=== PATIENT | female | born 1955 | race Caucasian/White ===

== ENCOUNTER → 2017-03-30 | Emergency (ER) | payer OTHER ==
[~2017-03-30] VITALS: Ht 162.6 cm; Wt 91.6 kg
[~2017-03-30] MED LIST: ACET500C5 PO; ALBU18HF INHALATION; GUAI473L22 PO; INSU100V19 SQ; LISI10TA2; MELO-216 PO; MTF1000T; SIMV20TA PO; SODI126M NASAL
[2017-03-30 19:57] VITALS: Ht 162.6 cm; Wt 91.6 kg
--- NOTE | 2017-03-30 21:59 | RADRPT ---
PROCEDURE: Portable chest x-ray. CLINICAL INDICATION: 61-year of age, female. Chest pain fever and cough TECHNIQUE: Portable AP view of the chest. COMPARISON: None available. FINDINGS: Moderate diffuse enlargement of the cardiopericardial silhouette. Mediastinal contours are otherwise normal. Pulmonary vessels are prominent. Lungs are otherwise clear. Negative for pleural effusion or pneumothorax. No acute bony abnormality. Additional comment: None. IMPRESSION: Cardiomegaly and prominent pulmonary vessels may indicate pulmonary venous congestion without inters titial pulmonary edema. Negative for focal lung consolidation. RPTAT: HCTS Physician Judi Date Time Electronically viewed and signed by Physician Judi on 03/30/2017 21:59 CS/
[2017-03-30 22:02] LABS: BASOPHIL # 0.1 10^3/ul (0.0-0.1); BASOPHILS % 0.4 % (0.0-2.0); EOSINOPHILS # 0.1 10^3/ul (0.0-0.5); EOSINOPHILS % 0.4 % (0.0-7.0); HEMATOCRIT 40.2 % (37.0-47.0); HEMOGLOBIN 13.4 g/dl (12.0-16.0); LYMPHOCYTES # 4.3 10^3/ul (0.8-2.9); LYMPHOCYTES % 30.2 % (15.0-51.0); MEAN CORPUSCULAR HEMOGLOBIN 31.4 pg (29.0-33.0); MEAN CORPUSCULAR HGB CONC 33.3 g/dl (32.0-37.0); MEAN CORPUSCULAR VOLUME 94.1 fl (82.0-101.0); MONOCYTE # 0.8 10^3/ul (0.3-0.9); MONOCYTES % 5.7 % (0.0-11.0); PLATELET COUNT 263 10^3/UL (140-415); RED BLOOD COUNT 4.27 10^6/ul (4.20-5.40); RED CELL DISTRIBUTION WIDTH 12.3 % (11.5-14.5); WHITE BLOOD COUNT 14.3 10^3/ul (4.8-10.8)
[2017-03-30 22:34] LABS: ANION GAP 18 (8-16); BLOOD UREA NITROGEN 23 mg/dl (7-20); CALCIUM 9.5 mg/dl (8.4-10.2); CARBON DIOXIDE 28 mmol/L (21-31); CHLORIDE 104 mmol/L (97-110); CREATININE 0.72 mg/dl (0.44-1.00); GLUCOSE 135 mg/dl (70-220); POTASSIUM 4.2 mmol/L (3.5-5.1); SODIUM 146 mmol/L (135-144)
[2017-03-30 22:46] LABS: TROPONIN-I < 0.012 ng/ml (0.00-0.12)
--- NOTE | 2017-03-30 23:32 | ERD ---
ER Documentation Chief Complaint Chief Complaint cough x 1 week, also c/o chest/back pain when coughing HPI 61-year-old female is complaining of a week. Patient stated that she has pain in her right anterior chest, and right upper back for last 4 days. The pain is worse with respiration and cough. She has a fever at home was temperature 100.4 . Cough is nonproductive, worse when lying down at night. Patient reports shortness of breath. Patient has history of diabetes. Denies abdominal pain, vomiting, or diarrhea. Denies palpitations. Denies radiation of the pain. ROS All systems reviewed and are negative except as per history of present illness. Medications Home Meds Active Scripts Guaifenesin-Codeine Phosphate* (Guaifenesin* AC Cough Syrup) 473 Ml Liquid, 10 ML PO Q4H Y for COUGH, #120 ML Prov:KEYUR VILLASENOR NP 03/30/17 Sodium Chloride (Saline Nasal Mist) 126 Ml Mist, 2 SPRAY NASAL Q2H Y for NASAL CONGESTION, #1 BOTTLE Prov:KEYUR VILLASENOR NP 03/30/17 Albuterol Sulfate* (Ventolin HFA*) 18 Gm Hfa.aer.ad, 2 PUFF INHALATION Q4H, #1 INHALER Prov:KEYUR VILLASENOR NP 03/30/17 Acetaminophen* (Tylophen*) 500 Mg Capsule, 1 CAP PO Q6H Y for PAIN AND OR ELEVATED TEMP, #20 CAP Prov:KEYUR VILLASENOR NP 03/30/17 Reported Medications Simvastatin* (Zocor*) 20 Mg Tablet, 20 MG PO DAILY 09/07/11 Meloxicam (Mobic) 7.5 Mg Tablet, 7.5 MG PO Q6 Y 09/07/11 Insulin Glargine,Hum.rec.anlog (Lantus) 100 U/Ml Vial, 50 U SQ BID 09/07/11 Lisinopril* (Lisinopril*) 10 Mg Tablet 02/26/10 Metformin* (Glucophage*) 1,000 Mg Tablet 02/26/10 Allergies Allergies: Coded Allergies: No Known Drug Allergies (Verified Allergy, Mild, 03/30/17) PMhx/Soc History of Surgery: Yes (C SECTION) Anesthesia Reaction: No Hx Neurological Disorder: No Hx Respiratory Disorders: No Hx Cardiac Disorders: No Hx Psychiatric Problems: No Hx Miscellaneous Medical Probl: Yes (HTN) Hx Alcohol Use: No Hx Substance Use: No Hx Tobacco Use: No Smoking Status: Never smoker Physical Exam Vitals Vital Signs Date Time Temp Pulse Resp B/P Pulse Ox O2 Delivery O2 Flow Rate FiO2 03/30/17 19:57 99.2 91 20 115/56 96 Physical Exam General: Well-developed, well-nourished, conscious and coherent, in no distress Skin: Warm and dry without rash, good texture and turgor Head: Normocephalic without evidence of trauma Eyes: Sclera and conjunctivae normal; pupils equal, round, and reactive to light; extraocular movements are intact Ears: Canals are patent. Tympanic membranes are clear Nose/Face: To mucosa erythematous and swollen. Mouth/throat: Mucous membranes are moist. Posterior pharynx clear without erythema or exudates Neck: Supple without meningismus or adenopathy. Carotids are equal. Trachea midline. No bruits or JVD Chest: Normal AP diameter. Good expansion without retractions. Nontender. Lungs are clear to auscultate bilaterally with good tidal volume. Anterior chest wall tenderness below the right breast. Heart: Regular rate and rhythm. No murmur, rub, or gallops heard Abdomen: Soft and nontender without masses, guarding, or rebound. Bowel sounds are active. No hepatosplenomegaly Back: Without spinal or CVA tenderness. Right upper back tenderness noted over the right scapula. Pelvis: Nontender to palpation and stable to compression Extremities: Full range of motion. Good strength bilaterally. No clubbing, cyanosis, or edema. Peripheral pulses are intact. Sensation intact Neuro: Alert and oriented 4, GCS 15. Cranial nerves grossly intact. Motor and sensory exams nonfocal. Moves all extremities. Speech clear. Gait normal Result Diagram: 03/30/17213203/30/172132 Results 24 hrs Laboratory Tests Test 03/30/17 21:33 White Blood Count 14.310^3/ul Red Blood Count 4.2710^6/ul Hemoglobin 13.4g/dl Hematocrit 40.2% Mean Corpuscular Volume 94.1fl Mean Corpuscular Hemoglobin 31.4pg Mean Corpuscular Hemoglobin Concent 33.3g/dl Red Cell Distribution Width 12.3% Platelet Count 82159^3/UL Mean Platelet Volume 11.0fl Neutrophils % 63.0% Lymphocytes % 30.2% Monocytes % 5.7% Eosinophils % 0.4% Basophils % 0.4% Nucleated Red Blood Cells % 0.0/100WBC Neutrophils # 9.010^3/ul Lymphocytes # 4.310^3/ul Monocytes # 0.810^3/ul Eosinophils # 0.110^3/ul Basophils # 0.110^3/ul Nucleated Red Blood Cells # 0.010^3/ul Sodium Level 146mmol/L Potassium Level 4.2mmol/L Chloride Level 104mmol/L Carbon Dioxide Level 28mmol/L Anion Gap 18 Blood Urea Nitrogen 23mg/dl Creatinine 0.72mg/dl Glucose Level 135mg/dl Calcium Level 9.5mg/dl Troponin I < 0.012ng/ml PROCEDURE: Portable chest x-ray. CLINICAL INDICATION: 61-year of age, female. Chest pain fever and cough TECHNIQUE: Portable AP view of the chest. COMPARISON: None available. FINDINGS: Moderate diffuse enlargement of the cardiopericardial silhouette. Mediastinal contours are otherwise normal. Pulmonary vessels are prominent. Lungs are otherwise clear. Negative for pleural effusion or pneumothorax. No acute bony abnormality. Additional comment: None. IMPRESSION: Cardiomegaly and prominent pulmonary vessels may indicate pulmonary venous congestion without interstitial pulmonary edema. Negative for focal lung consolidation. RPTAT: HCTS Physician Judi Date Time Electronically viewed and signed by Physician Judi on 03/30/2017 21: 59 CS/ CC: KEYUR VILLASENOR BUDGET TECHNICIAN Procedures/MDM Well-appearing 61-year-old female with history of diabetes presented to ED with cough, fever, and right-sided chest pain. EKG: Normal sinus rhythm rate 88 bpm, normal axis. Nonspecific early repolarization. No ST segment elevation or depression. No ectopic beats. No QT prolongation. No other EKG abnormalities. EKG read by Dr. Hendricks. CBC: WBC 14.3, otherwise unremarkable. BMP is unremarkable. Troponin negative. Chest x-ray: Cardiomegaly and prominent pulmonary vessels may indicate pulmonary venous congestion without interstitial pulmonary edema. Negative for focal lung consolidation. Low suspicion for acute coronary syndrome, aortic dissection, pneumonia, pneumothorax, or PE. Patient has reproducible chest wall tenderness to palpation. Likely patient chest pain was from costochondritis. Patient is afebrile, in no respiratory distress. Lungs are clear to auscultate. I doubt that patient has pneumonia or bronchitis. Likely patient's cough is result of viral upper respiratory infection. Patient appears well, stable for discharge and outpatient management. Medical decision making shared with patient and family. Education provided to patient and family. Patient and family expressed understanding of the plan. Medications on discharge: Tylenol, Ventolin, saline nasal spray, guaifenesin with codeine. Follow-up: Primary care provider in 2-3 days or return to ED if worse. Disclaimer: Inadvertent spelling and grammatical errors are likely due to EHR/ dictation software use and do not reflect on the overall quality of patient care. Also, please note that the electronic time recorded on this note does not necessarily reflect the actual time of the patient encounter. Departure Diagnosis: Primary Impression: URI (upper respiratory infection) URI type: acute nasopharyngitis (common cold) Qualified Code: J00 - Acute nasopharyngitis Additional Impression: Chest wall pain Condition: Stable Patient Instructions: Adult Self-Care for Colds, Chest Wall Strain Additional Instructions: Llame al doctor MAANA y goldy jose ANDRA PARA DENTRO DE 2-3 GOLD.Dgale a la secretaria que nosotros le instruimos hacer esta andra.Avise o llame si mock condicin se empeora antes de la andra. Regresa aqui si peor o no mejor. KEYUR VILLASENOR NP Mar 30, 2017 23:26
== END | disposition home or self-care (01) ==
LOC: FTE 19:44
DX: J00 Acute nasopharyngitis [common cold] (principal); R07.89 Other chest pain; I10 Essential (primary) hypertension; E11.9 Type 2 diabetes mellitus without complications; Z79.4 Long term (current) use of insulin; Z79.84 Long term (current) use of oral hypoglycemic drugs
CPT/HCPCS: 71010; 80048; 84484; 85025; Z7502